=== PATIENT | female | born 1940 | race Two or more races ===

== ENCOUNTER 2020-11-30 05:43 | Day surgery (SDC) | payer OTHER ==
[~2020-11-30 05:43] MED LIST: ADULT ASPIRIN81 MG; FORTAMET500 MG PO; GABAPENTIN PO; NEURONTIN300 MG PO; VALTREX1000 MG PO
[2020-11-30] MEDS ORDERED: IBU600 MG PO (08:52)
[2020-11-30] MEDS ORDERED: CIPRO500 MG PO (08:53)
== END 2020-11-30 13:20 | disposition home or self-care (01) ==
LOC: CIR.AMB 05:43
PROVIDERS: ATTEND Obstetrics & Gynecology Gynecology
DX: N81.12 Cystocele, lateral (principal); Z20.822 Contact with and (suspected) exposure to COVID-19